=== PATIENT | male | born 1945 | race Caucasian/White ===

== ENCOUNTER 2021-08-28 11:10 | Day surgery (SDC) | payer MEDICARE ==
[2021-08-22 12:38] LABS: BASOPHILS % (AUTO) 0.3 % (0-1); EOSINOPHILS # (AUTO) 0.1 X10'3 (0-0.9); EOSINOPHILS % (AUTO) 0.8 % (0-6); HEMATOCRIT 55.2 % (42.0-52.0); LYMPHOCYTES # (AUTO) 1.5 X10'3 (1.1-4.8); LYMPHOCYTES % (AUTO) 17.2 % (21-51); MEAN CORPUSCULAR HEMOGLOBIN 29.8 PG (27.0-31.0); MEAN CORPUSCULAR HGB CONC 33.6 g/dL (33.0-36.5); MEAN CORPUSCULAR VOLUME 88.5 FL (78-98); MEAN PLATELET VOLUME 8.8 FL (7.4-10.4); MONOCYTES # (AUTO) 0.6 X10'3 (0-0.9); MONOCYTES % (AUTO) 7.3 % (2-12); NEUTROPHILS # (AUTO) 6.4 X10'3 (1.8-7.7); NEUTROPHILS % (AUTO) 74.4 % (42-75); PLATELET COUNT 192 X10'3 (140-440); RED BLOOD COUNT 6.24 X10'6 (4.70-6.10); RED CELL DISTRIBUTION WIDTH 13.5 % (11.5-14.5); WHITE BLOOD COUNT 8.6 X10'3 (4.5-11.0)
[2021-08-22 12:48] LABS: HEMOGLOBIN 18.6 g/dl (14.0-17.9)
[2021-08-22 12:50] LABS: ALBUMIN 3.5 G/DL (3.4-5.0); BLOOD UREA NITROGEN 15 MG/DL (7-18); BUN/CREATININE RATIO 11.6 (5.4-32.0); CALCIUM 8.8 MG/DL (8.5-10.1); CHLORIDE 106 MMOL/L (99-107); CREATININE 1.29 MG/DL (0.60-1.10); GLUCOSE 148 MG/DL (70-104); POTASSIUM 4.8 MMOL/L (3.5-5.1); TOTAL CARBON DIOXIDE 30.9 MMOL/L (24-32); eGFR 54 ML/MIN
[2021-08-22 12:51] LABS: ANION GAP 8 (8-16); SODIUM 145 MMOL/L (135-145)
[2021-08-22 12:54] LABS: APTT 29 SECONDS (22-32)
[2021-08-28] VITALS (10 sets, daily range): BP systolic 101–128; BP diastolic 63–92
[~2021-08-28] VITALS: Ht 182.9 cm; Wt 98.6 kg
[~2021-08-28 11:10] MED LIST: APIX5TAB3 PO; LEVO175T2 PO; METO50TA7 PO; MULT-1085 PO
[2021-08-28] MEDS ORDERED: SILD100T PO (11:31)
[2021-08-28] MEDS ORDERED: FLEC100T PO (11:31)
[2021-08-28] MEDS ORDERED: TEST200V33 IM (11:31)
[2021-08-28] MEDS ORDERED: METF-437 PO (11:31)
[2021-08-28] MEDS ORDERED: fentaNYL/PF 50MCG/1 ML 2ML syringe IV ONE (11:45)
[2021-08-28] MEDS ORDERED: MIDAZolam 1mg/ml 10ml vial IV ONE (11:45)
[2021-08-28] MEDS ORDERED: normal saline 1000ml 1,000 ML IV SCH (11:45)
== END 2021-08-28 16:20 | disposition home or self-care (01) ==
LOC: SSTAY O 11:10
PROVIDERS: ATTEND Student in an Organized Health Care Education/Training Program
DX: I48.0 Paroxysmal atrial fibrillation (principal); G47.33 Obstructive sleep apnea (adult) (pediatric); E11.9 Type 2 diabetes mellitus without complications; I11.9 Hypertensive heart disease without heart failure; Z79.01 Long term (current) use of anticoagulants; Z79.84 Long term (current) use of oral hypoglycemic drugs; Z79.899 Other long term (current) drug therapy; Z91.041 Radiographic dye allergy status
CPT/HCPCS: 36415; 80048; 82948; 85025; 85610; 85730; 92960; 93005; 94760; 94799; J2250; J3010; J7030; A4620